=== PATIENT | female | born 1990 | race Caucasian/White ===

== ENCOUNTER 2019-02-09 08:52 | Day surgery (SDC) | payer BC ==
[2019-02-04 15:54] VITALS: BMI 37.0
[2019-02-09] MEDS ORDERED: SODIUM CHLORIDE 0.9% 1,000 ML IV SCH (09:07)
[2019-02-09 09:32] VITALS: PULSE 82; TEMP 97.9
[2019-02-09] MEDS ORDERED: IV FLUID CONTINUATION 450 ML IV ONE (09:55)
[2019-02-09 11:12] VITALS: BP 130/80; RESP 18
== END 2019-02-09 11:03 | disposition home or self-care (01) ==
LOC: CATHEP 08:52
PROVIDERS: ATTEND Internal Medicine Clinical Cardiac Electrophysiology
DX: R55 Syncope and collapse (principal)
CPT/HCPCS: 81025; 93660

== ENCOUNTER 2020-03-20 08:44 | Outpatient (CLI) | payer BC ==
[2020-03-20 09:10] VITALS: BP 131/81; PULSE 98; RESP 17; TEMP 97.6
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
== END 2020-03-20 10:15 | disposition home or self-care (01) ==
LOC: FBPOP 08:44
PROVIDERS: ATTEND Obstetrics & Gynecology Obstetrics
DX: O99.89 Other specified diseases and conditions complicating pregnancy, childbirth and the puerperium (principal); R52 Pain, unspecified; Z3A.22 22 weeks gestation of pregnancy
CPT/HCPCS: 99213

== ENCOUNTER 2020-07-18 06:00 | Inpatient (IN) | payer BC ==
[2020-07-18] MEDS ORDERED: DINOPROSTONE 10 MG INSERT.ER VAGINAL ONE (17:05)
[2020-07-18 17:25] LABS: Basophils # (A) 0.1 k/uL (0-0.2); Basophils % (A) 1 %; Eosinophils # (A) 0.2 k/uL (0-0.7); Eosinophils % (A) 1 %; HCT 40.6 % (34.0-46.0); HGB 14.1 gm/dL (11.4-16.0); Lymphocytes # (A) 2.4 k/uL (1.0-4.8); Lymphocytes % (A) 18 %; MCH 28.8 pg (25.0-35.0); MCHC 34.8 g/dL (31.0-37.0); MCV 82.7 fL (80.0-100.0); Mean Platelet Volume 8.1; Monocytes # (A) 0.8 k/uL (0-1.0); Monocytes % (A) 6 %; Neutrophils % (A) 73 %; Platelet Count 263 k/uL (150-450); RBC 4.91 m/uL (3.80-5.40); RDW 13.7 % (11.5-15.5); WBC 13.7 k/uL (3.8-10.6)
--- NOTE | 2020-07-18 18:00 | P.HPOB ---
History of Present Illness H&P Date: 07/18/20 Chief Complaint: IUP at 40-0/7 weeks, circumvallate placenta This is a 29-year-old 1 para 0 at 40-0/7 weeks that presents to labor and delivery for induction of labor. Patient has been receiving routine care with myself which has been essentially uncomplicated with the diagnosis of circumvallate placenta noted at her 20 week anatomy scan. Patient has undergone growth ultrasounds every 4 weeks along with testing. Ultrasound was completed today with an estimated weight of 8 lbs. 6 oz., amniotic fluid index was normal. Fetus was noted to be in vertex presentation. On bloodwork should a blood type of O+, rubella status immune, B surface antigen negative, HIV negative, RPR nonreactive, group beta strep was negative. Patient notes good movement and an occasional contraction. She denies loss of fluid or vaginal bleeding. Review of Systems Constitutional: Denies chills, Denies fatigue, Denies fever Cardiovascular: Reports leg edema Respiratory: Denies dyspnea Gastrointestinal: Denies constipation, Denies diarrhea, Denies nausea, Denies vomiting Genitourinary: Reports Past Medical History Additional Past Medical History / Comment(s): HAS HAD 2 EPISODES OF DIZZINESS WITH FLUSHING History of Any Multi-Drug Resistant Organisms: None Reported Past Surgical History: Adenoidectomy, Tonsillectomy Additional Past Surgical History / Comment(s): HAD WISDOM TEETH REMOVED UNDER ANESTHESIA Past Anesthesia/Blood Transfusion Reactions: No Reported Reaction Past Psychological History: Depression Additional Psychological History / Comment(s): NO RX AT THIS TIME Smoking Status: Never smoker Past Alcohol Use History: Occasional Past Drug Use History: None Reported - Past Family History Father Family Medical History: Cancer Additional Family Medical History / Comment(s): solomon syndrome Mother Family Medical History: Cancer Medications and Allergies Home Medications Medication Instructions Recorded Confirmed Type Pnv,Calcium 72/Iron/Folic Acid 1 each PO DAILY 03/20/20 07/18/20 History [ Plus Tablet] Allergies Allergy/AdvReac Type Severity Reaction Status Date / Time No Known Allergies Allergy Verified 07/18/20 17:03 Exam Osteopathic Statement: *. No significant issues noted on an osteopathic structural exam other than those noted in the History and Physical/Consult. 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 On cervical exam she is 2/50/-3 station Cervidil is placed without difficulty. Results Result Diagrams: 07/18/20 17:17 Abnormal Lab Results - Last 24 Hours (Table) 07/18/20 Range/Units 17:17 WBC 13.7 H (3.8-10.6) k/uL Neutrophils # 10.0 H (1.3-7.7) k/uL Assessment and Plan (1) Term Current Visit: Yes Status: Acute Code(s): Z34.90 - ENCNTR FOR SUPRVSN OF NORMAL , UNSP, UNSP TRIMESTER SNOMED Code(s): 62290479 (2) Circumvallate placenta Current Visit: Yes Status: Acute Code(s): O43.119 - CIRCUMVALLATE PLACENTA, UNSPECIFIED TRIMESTER SNOMED Code(s): 4768922 Plan: This 29-year-old 1 para 0 at 40-0/7 weeks presents for induction of labor. Cervidil induction of labor is begun given she is 2/50/-2 station. Infant was noted to be 8 lbs. 6 oz. today based on ultrasound. Patient is offered Stadol and epidural should she become uncomfortable. She will consider. Plan Pitocin augmentation of labor around 6-6:30 in the morning.
[2020-07-18] MEDS: BUTORPHANOL 1 MG/ML 1 ML VIAL IV PRN (23:46)
[2020-07-19] MEDS: BUTORPHANOL 1 MG/ML 1 ML VIAL IV PRN (03:03)
[2020-07-19] MEDS ORDERED: TERBUTALINE 1 MG/ML VIAL SQ PRN (06:01)
[2020-07-19] MEDS ORDERED: CARBOPROST TROMETHAMINE 250 MCG/ML 1 ML AMP IM PRN (06:01)
[2020-07-19] MEDS ORDERED: METHYLERGONOVINE 0.2 MG/ML 1 ML AMP IM PRN (06:01)
[2020-07-19] MEDS ORDERED: OXYTOCIN 10 UNIT/ML 1 ML VIAL IM PRN (06:01)
[2020-07-19] MEDS ORDERED: LIDOCAINE 0.5% (PF) 5 MG/ML (50 ML SDV) SQ PRN (06:01)
[2020-07-19] MEDS ORDERED: OXYTOCIN 30 UNITS/500 ML NS 30 UNIT in SALINE 1 500ML.BAG IV SCH ×2 (06:15→17:45)
[2020-07-19] MEDS: LACTATED RINGERS 1,000 ML IV SCH ×2 (07:15→11:11)
[2020-07-19] MEDS ORDERED: ROPIVACAINE 5MG/ML 20ML VIAL ONE (10:44)
[2020-07-19] MEDS ORDERED: fentaNYL (PF) 50 MCG/ML 5 ML AMP ONE (10:44)
[2020-07-19] MEDS ORDERED: SODIUM CHLORIDE 0.9% 100 ML BAG ONE (10:44)
[2020-07-19] MEDS: PRENATAL VIT-IRON-FOLIC ACID 1 EACH CAP PO SCH (11:12)
[2020-07-19] MEDS ORDERED: ROPIVACAINE 100 MG, fentaNYL (PF) 200 MCG in SODIUM CHLORIDE 0.9% 76 ML EPIDURAL ONE (13:02)
[2020-07-19] MEDS ORDERED: SIMETHICONE 80 MG CHEWABLE PO PRN (17:44)
[2020-07-19] MEDS ORDERED: diphenhydrAMINE 50 MG CAP PO PRN (17:44)
[2020-07-19] MEDS ORDERED: ACETAMINOPHEN TAB 325 MG TAB PO PRN (17:44)
[2020-07-19] MEDS ORDERED: ZOLPIDEM 5 MG TAB PO PRN (17:44)
[2020-07-19] MEDS ORDERED: LANOLIN CREAM 5 GM TUBE TOPICAL PRN (17:44)
[2020-07-19] MEDS ORDERED: diphenhydrAMINE 50 MG/ML 1 ML VIAL IVP PRN ×2 (17:44)
[2020-07-19] MEDS ORDERED: diphenhydrAMINE 25 MG CAP PO PRN (17:44)
[2020-07-19] MEDS ORDERED: BENZOCAINE/MENTHOL SPRAY 1 GM/SPRAY AEROSOL TOPICAL PRN (17:44)
[2020-07-19] MEDS ORDERED: HYDROCORTISONE 2.5% RECTAL CREAM 30 GM TUBE RECTAL PRN (17:44)
--- NOTE | 2020-07-19 17:49 | P.PROBDLV ---
Vaginal Delivery Note - . Vaginal Delivery Note: This is a 29-year-old 1 para 0 at 40 and one sevenths weeks that presented to labor and delivery last evening for Cervidil induction of labor. Patient had been receiving routine. care which has been essentially uncomplicated with the only finding of circumvallate placenta. Patient underwent growth ultrasounds to 4 weeks along with testing all normal in nature. Ultrasound yesterday revealing an estimated weight of 8 lbs. 6 oz. Patient was admitted to labor and delivery and Cervidil was placed without difficulty. Patient was noted to be 2 cm at that time. Patient was uncomfortable through the evening receiving Stadol 2. Cervidil was removed and amniotomy was performed revealing clear fluid. Patient progressed through labor eventually becoming uncomfortable and requesting epidural placement. Epidural was placed without difficulty by the anesthesia department. Patient progressed to complete began pushing and had a normal spontaneous vaginal delivery of a viable male infant at 1708, weight of 7 lbs. 4 oz. and Apgars of 8 and 9 at one and 5 minutes respectively. The umbilical cord was doubly clamped and cut and the infant was handed off to the maternal abdomen. The placenta was then delivered spontaneously intact with a three-vessel cord being noted. a midline vaginal laceration was appreciated. A significant amount of bleeding was noted therefore suction was used to visualize the apex and this was repaired in the usual fashion with 3-0 Rapide. After multiple sutures had been thrown hemostasis was appreciated. The uterus was noted be firm and below the umbilicus at this time. Prior to the repair a red rubber catheter was used to drain the bladder of approximately 200 mL of clear yellow urine. once again the laceration was visualized and found to be hemostatic. All counts were noted be correct 2 at the end of the procedure, a short tolerated delivery and laceration repair well and is resting comfortably.
[2020-07-19 19:38] VITALS: RESP 16
[2020-07-19] MEDS: IBUPROFEN 600 MG TAB PO PRN (21:33)
[2020-07-19] MEDS: SENNOSIDES-DOCUSATE SODIUM 1 EACH TAB PO SCH (21:33)
[2020-07-20] MEDS: IBUPROFEN 600 MG TAB PO PRN (05:06)
[2020-07-20 05:50] LABS: Basophils # (A) 0.1 k/uL (0-0.2); Basophils % (A) 0 %; Eosinophils # (A) 0.1 k/uL (0-0.7); Eosinophils % (A) 0 %; HCT 32.9 % (34.0-46.0); HGB 11.6 gm/dL (11.4-16.0); Lymphocytes # (A) 3.2 k/uL (1.0-4.8); Lymphocytes % (A) 15 %; MCH 29.6 pg (25.0-35.0); MCHC 35.4 g/dL (31.0-37.0); MCV 83.5 fL (80.0-100.0); Mean Platelet Volume 8.6; Monocytes # (A) 1.2 k/uL (0-1.0); Monocytes % (A) 6 %; Neutrophils # (A) 16.5 k/uL (1.3-7.7); Neutrophils % (A) 78 %; Platelet Count 246 k/uL (150-450); RBC 3.93 m/uL (3.80-5.40); RDW 13.8 % (11.5-15.5); WBC 21.2 k/uL (3.8-10.6)
--- NOTE | 2020-07-20 08:28 | P.DS ---
Providers Date of admission: 07/18/20 16:53 Expected date of discharge: 07/20/20 Attending physician: Yaa Kendrick Primary care physician: Stated None - Discharge Diagnosis(es) (1) Term Current Visit: Yes Status: Acute (2) Circumvallate placenta Current Visit: Yes Status: Acute (3) Status post vaginal delivery Current Visit: Yes Status: Acute (4) Obstetric vaginal laceration with second degree perineal laceration Current Visit: Yes Status: Acute Hospital Course: This is a 29-year-old 1 para 0 at 40 and one sevenths weeks that presented to labor and delivery for scheduled Cervidil induction of labor. Patient had been receiving routine care which was complicated by known circumvallate placenta. Patient had undergone growth ultrasounds every 4 weeks along with testing. All normal in nature. Ultrasound was completed prior to her admission revealing an 8 lbs. 6 oz. fetus. Patient was admitted to labor and delivery and Cervidil was placed without difficulty. Patient was noted to be 2 cm. Patient was uncomfortable through the night receiving Stadol. In the morning patient underwent amniotomy and Pitocin augmentation of labor. Amniotomy did reveal clear fluid. Patient eventually became uncomfortable and requested epidural placement. Epidural was placed without difficulty by the anesthesia department. Patient did progress to complete began pushing and had a normal spontaneous vaginal delivery of a viable male at 1708, weight of 7 lbs. 4 oz. and Apgars of 8 and 9 at one and 5 minutes respectively. Patient did sustain a second-degree midline laceration which was repaired in the usual fashion with 3-0 repeat. Patient did have a significant amount of bleeding secondary to her laceration which was hemostatic at the end of closure. Patient's course has been uneventful. On this day 1 she is a billing and voiding without difficulty. She states her pain is well- controlled. She denies concerns and would like discharge home at 24 hours if possible. Patient Condition at Discharge: Good Plan - Discharge Summary New Discharge Prescriptions: No Action Pnv,Calcium 72/Iron/Folic Acid [ Plus Tablet] 1 each PO DAILY Discharge Medication List Pnv,Calcium 72/Iron/Folic Acid [ Plus Tablet] 1 each PO DAILY 03/20/20 [History] Follow up Appointment(s)/Referral(s): Yaa Kendrick DO [Doctor of Osteopathic Medicine] - 4 Weeks Patient Instructions/Handouts: Vaginal Delivery (GEN), Vaginal Delivery (DC) Discharge Disposition: HOME SELF-CARE
[2020-07-20] MEDS: SENNOSIDES-DOCUSATE SODIUM 1 EACH TAB PO SCH (10:00)
[2020-07-20] MEDS: PRENATAL VIT-IRON-FOLIC ACID 1 EACH CAP PO SCH (10:01)
[2020-07-20 16:53] VITALS: BP 136/76; PULSE 101; TEMP 97.3
== END 2020-07-20 18:35 | disposition home or self-care (01) | DRG 807 ==
LOC: 4FBP 16:53
PROVIDERS: ADMIT Obstetrics & Gynecology Obstetrics; ATTEND Obstetrics & Gynecology Obstetrics
PROC: 10E0XZZ Delivery of Products of Conception, External Approach (ICD-10-PCS; principal; 2020-07-19)
PROC: 0KQM0ZZ Repair Perineum Muscle, Open Approach (ICD-10-PCS; 2020-07-19)
PROC: 3E033VJ Introduction of Other Hormone into Peripheral Vein, Percutaneous Approach (ICD-10-PCS; 2020-07-19)
PROC: 10907ZC Drainage of Amniotic Fluid, Therapeutic from Products of Conception, Via Natural or Artificial Opening (ICD-10-PCS; 2020-07-19)
PROC: 3E0R3BZ Introduction of Anesthetic Agent into Spinal Canal, Percutaneous Approach (ICD-10-PCS; 2020-07-19)
DX: O43.113 Circumvallate placenta, third trimester (principal); Z37.0 Single live birth; Z3A.40 40 weeks gestation of pregnancy; O70.1 Second degree perineal laceration during delivery; Z79.899 Other long term (current) drug therapy; Z98.890 Other specified postprocedural states; Z86.59 Personal history of other mental and behavioral disorders; Z80.0 Family history of malignant neoplasm of digestive organs
CPT/HCPCS: 85025; 86850; 86900; 86901